=== PATIENT | female | born 1940 | race Caucasian/White ===

== ENCOUNTER 2017-01-24 16:49 | Emergency (ER) | payer SELFPAY ==
[~2017-01-24] VITALS: Ht 149.9 cm; Wt 59.9 kg
[2017-01-24 16:49] VITALS: BP_SYST 188
[2017-01-24] MEDS ORDERED: KETOROLAC TROMETHAMINE 30 MG VIAL IM ONE (17:30)
[2017-01-24] MEDS ORDERED: DIPH-TET-PERTUS Vaccine 0.5 ML VIAL (ADACEL) IM ONE (17:30)
[2017-01-24] MEDS ORDERED: BACITRACIN 1 GM OINT TP ONE (17:30)
[2017-01-24 19:29] VITALS: BP_SYST 188
== END 2017-01-24 19:29 | disposition home or self-care (01) ==
LOC: SED 16:49
DX: S01.01XA Laceration without foreign body of scalp, initial encounter (principal); I10 Essential (primary) hypertension; I48.91 Unspecified atrial fibrillation; Z88.0 Allergy status to penicillin; W18.30XA Fall on same level, unspecified, initial encounter; Y93.01 Activity, walking, marching and hiking; Y92.89 Other specified places as the place of occurrence of the external cause; Y99.8 Other external cause status
CPT/HCPCS: 12002; 70450; 72125; 96372; 99284; J1885; 90715